=== PATIENT | male | born 1990 | race African-American/Black ===

== ENCOUNTER 2017-09-02 23:42 | Emergency (ER) | payer SELFPAY ==
[~2017-09-02] VITALS: Ht 180.3 cm; Wt 75.0 kg
[~2017-09-02 23:42] MED LIST: IMOD2TAB PO; ZOFR4TAB3 SL
[2017-09-03 00:09] VITALS: BP 107/61; PULSE 73; RESP 18; TEMP 98.6; O2SAT 100
[2017-09-03] MEDS ORDERED: TRIA.025%T TOPICAL (00:23)
--- NOTE | 2017-09-03 00:27 | PD ---
HPI Chief Complaint: Skin Problem Time Seen by Provider: 00:21 Travel History International Travel<30 days: No Contact w/Intl Traveler<30days: No Traveled to known affect area: No History of Present Illness HPI 27-year-old male presents for evaluation of skin irritation in the bilateral axilla region. He reports that 2 days ago he used any type of deodorant and since then he has had a burning sensation in his axilla. He reports that he used some [id number] hydrocortisone cream with some improvement, but not resolution, of his symptoms. He has no other complaints at this time. ON LICENSE OF [facility] Past Medical History Medical History: Denies Significant Hx Diminished Hearing: No Tetanus Vaccination: < 5 Years Influenza Vaccination: Yes Past Surgical History Surgical History: No Previous Surgery Social History Alcohol Use: Yes (RECREATIONALLY) Tobacco Use: No Substance Use: No Allergies-Medications (Allergen,Severity, Reaction): Coded Allergies: No Known Allergies (Unverified Adverse Reaction, Unknown, 09/03/17) Reported Meds & Prescriptions Reported Meds & Active Scripts Active Triamcinolone Topical (Triamcinolone Acetonide) 0.025% Cream 1 Applic TOPICAL BID 10 Days Review of Systems General / Constitutional: No: Fever, Chills Skin: Positive Rash, Positive Other (Burning sensation) Physical Exam Narrative GENERAL: Well-developed well-nourished male in no acute distress SKIN: Warm and dry. Bilateral axillary region the skin is mildly reddened and irritated. There is no fluctuance or drainage or induration. Data Data Last Documented VS Vital Signs Date Time Temp Pulse Resp B/P (MAP) Pulse Ox O2 Delivery O2 Flow Rate FiO2 09/03/17 00:09 98.6 73 18 107/61 (76) 100 MDM Medical Decision Making Medical Screen Exam Complete: Yes Emergency Medical Condition: Yes Medical Record Reviewed: Yes Differential Diagnosis Irritant contact dermatitis, allergic contact dermatitis, folliculitis Narrative Course The patient appears to have a mild irritant contact dermatitis bilaterally secondary to the new deodorant. He will be discharged with a short course of triamcinolone cream. Diagnosis Primary Impression: Irritant contact dermatitis Additional Instructions: Medication as prescribed. Avoid the new deodorant. Avoid deodorants in general until symptoms resolve. Med/Other Pt SpecificInfo: Prescription(s) given Scripts Triamcinolone Topical (Triamcinolone Topical) 0.025% Cream 1 APPLIC TOPICAL BID for Inflammation for 10 Days, GM 0 Refills Prov: Yadiel Almaraz MD 09/03/17 Disposition: 01 DISCHARGE HOME Condition: Stable Juan Painter Sep 03, 2017 00:27
== END 2017-09-03 00:44 | disposition home or self-care (01) ==
LOC: NEPD 23:42
DX: L24.9 Irritant contact dermatitis, unspecified cause (principal)
CPT/HCPCS: 99283